=== PATIENT | female | born 1980 | race Caucasian/White ===

== ENCOUNTER → 2016-08-23 | Outpatient (CLI) | payer OTHER | LOC: LAB 11:40 | DX: Z02.1 Encounter for pre-employment examination (principal) | CPT/HCPCS: 86706; 86787 ==

== ENCOUNTER → 2020-06-01 | Outpatient (CLI) | payer OTHER | LOC: ECHO 04-27 13:00 | DX: I34.0 Nonrheumatic mitral (valve) insufficiency (principal) | CPT/HCPCS: ECHO; 93306 ==